=== PATIENT | female | born 1990 | race African-American/Black ===

== ENCOUNTER 2020-04-30 08:12 | Emergency (ER) | payer BC ==
[~2020-04-30] VITALS: Ht 160 cm; Wt 56.0 kg
[~2020-04-30 08:12] MED LIST: AMOXICILLIN500 MG PO; BACTRIM DS1 TAB OR; CIPRO500 MG OR; LORTAB 5 OR; MECLOFENAMATE OR; NAPROSYN500 MG OR; NO MEDS; ULTRAM50 M1 PO; ZOFRAN ODT4 MG PO; ZOFRAN4 MG/TAB PO; [UNRECOGNIZED DRUG - REMARK]
[2020-04-30 08:54] LABS: HEMATOCRIT 29.5 % (37.0-47.0); IMMATURE GRANULOCYTES 0.4 % (0.0-5.0); MEAN CORPUSCULAR HGB 16.8 pG CALC (26.0-32.0); MEAN CORPUSCULAR HGB CONC 28.1 g/dL CAL (32.0-36.0); NEUT# 8.65 thou/uL (2.00-7.15); RED BLOOD COUNT 4.93 mill/uL (4.20-5.60); RED CELL DISTRI WIDTH 22.4 % (11.5-15.5)
[2020-04-30 08:59] LABS: HEMOGLOBIN 8.3 g/dl (12.0-16.0); MEAN CELL VOLUME 59.8 fL CALC (80.0-100.0)
[2020-04-30 09:16] LABS: ALBUMIN 4.2 g/dL (3.2-5.0); ALKALINE PHOSPHATASE 51 u/l (38-126); AMYLASE 111 u/l (30-110); ANION GAP 12 (6-22 (CALC)); BILIRUBIN, TOTAL 0.5 mg/dL (0.0-1.4); BUN 17 mg/dL (7-17); BUN/CREATININE RATIO 24 (12-20 (CALC)); CHLORIDE 109 mmol/l (95-108); CREATININE 0.7 mg/dL (0.5-1.0); GFR > 60 ML/MIN (>=60 (CALC)); GFR FOR AFR.AMER. > 60 ML/MIN (>=60 (CALC)); LIPASE 98 u/l (23-300); POTASSIUM 3.9 mmol/l (3.5-5.1); SGOT/AST 28 u/l (14-36); SODIUM 137 mmol/l (137-146); TOTAL PROTEIN 7.3 g/dL (6.3-8.2)
[2020-04-30 09:17] LABS: CARBON DIOXIDE 20 mmol/l (22-30)
[2020-04-30 09:20] LABS: URINE BILIRUBIN - DIPSTICK NEGATIVE (NEGATIVE); URINE BLOOD DIPSTICK LARGE (NEGATIVE); URINE COLOR YELLOW; URINE GLUCOSE - DIPSTICK NEGATIVE (NEGATIVE); URINE KETONE NEGATIVE (NEGATIVE); URINE LEUK ESTERASE NEGATIVE (NEGATIVE); URINE NITRITE - DIPSTICK NEGATIVE (Negative); URINE PROTEIN - DIPSTICK 30 mg/dL (NEG-TRACE); URINE SPECIFIC GRAVITY >=1.030; URINE UROBILINOGEN - DIPSTICK 0.2 E.U./dL (0.2)
[2020-04-30 09:28] LABS: URINE RBC 50-100 RBC/hpf (0-5); URINE SQUAMOUS EPITHELIAL CELL FEW EPI/hpf (0-FEW)
[2020-04-30] MEDS ORDERED: ULTRAM50 M1 PO (10:41)
[2020-04-30] MEDS ORDERED: FEOSOL45 MG PO (10:41)
[2020-04-30 11:30] VITALS: BP 100/52
== END 2020-04-30 11:40 | disposition home or self-care (01) | DRG 761 ==
LOC: ED 08:12
PROVIDERS: Emergency Medicine
DX: N94.3 Premenstrual tension syndrome (principal); D64.9 Anemia, unspecified

== ENCOUNTER 2022-10-26 01:18 | Emergency (ER) | payer BC ==
[~2022-10-26] VITALS: Ht 160 cm; Wt 54.4 kg
[~2022-10-26 01:18] MED LIST changes: +FEOSOL45 MG PO
[2022-10-26 03:04] VITALS: BP 98/73
[2022-10-26] MEDS ORDERED: AMOXICILLIN500 MG PO (03:12)
[2022-10-26 03:15] VITALS: BP 98/69
[2022-10-26 03:25] VITALS: BP 98/73
== END 2022-10-26 03:37 | disposition home or self-care (01) | DRG 159 ==
LOC: ED 01:18
DX: K02.9 Dental caries, unspecified (principal)

== ENCOUNTER 2022-11-14 14:10 | Emergency (ER) | payer BC ==
[~2022-11-14] VITALS: Ht 160 cm; Wt 55.0 kg
[2022-11-14 17:19] VITALS: BP 128/77
[2022-11-14 17:30] VITALS: BP 120/78
[2022-11-14 17:45] VITALS: BP 110/72
[2022-11-14] MEDS ORDERED: CLINDAMYCIN HY150 MG PO (17:50)
[2022-11-14] MEDS ORDERED: ONDANSETRON4 MG PO (17:50)
[2022-11-14] MEDS ORDERED: NAPROXEN500 MG PO (17:50)
[2022-11-14 18:00] VITALS: BP 121/76
[2022-11-14 18:15] VITALS: BP 133/83
[2022-11-14 18:17] VITALS: BP 133/83
== END 2022-11-14 18:28 | disposition home or self-care (01) | DRG 159 ==
LOC: ED 14:10
DX: K04.7 Periapical abscess without sinus (principal)